=== PATIENT | female | born 2000 | race Caucasian/White ===

== ENCOUNTER 2019-12-27 22:07 | Emergency (ER) | payer BC ==
[~2019-12-27] VITALS: Ht 162.6 cm; Wt 83.2 kg
[2019-12-27] MEDS ORDERED: IV NORMAL SALINE 1,000ML 1,000 ML IV ONE (22:15)
[2019-12-27] MEDS ORDERED: ONDANSETRON PF 4 MG/2 ML VIAL. ONE (22:24)
[2019-12-27] MEDS ORDERED: ONDANSETRON PF 4 MG/2 ML VIAL. IVP ONE (22:30)
--- NOTE | 2019-12-27 22:46 | PHYS DOC ---
Past History Past Medical History: No Pertinent History Past Surgical History: No Surgical History Alcohol Use: Occasionally General Adult EDM: Chief Complaint: ABDOMINAL PAIN HPI: HPI: 19 old female presents with nausea, vomiting, diarrhea, and headache. The patient's primary complaint today is that she has had dizziness and vomiting. She had a concussion on November 10 from a head injury. She is continued to have intermittent headaches and vomiting since that time. She is attempted to rest and decrease her physical sports, but this is not helped with the symptoms. Over the last few days she has had worsening the symptoms with no new trauma. She has a history of headaches, but usually only once a month and they last for less than a day. She did not have a medical work-up after her concussion. She is able to keep down solids and liquids most of the time, but for the last several hours she has been having a keep anything down, her headache is worse, and she is had diarrhea today. No known COVID-19 exposures. No fever or chills. Review of Systems: Review of Systems: Constitutional: Denies fever or chills Eyes: Denies change in visual acuity HENT: Denies nasal congestion or sore throat Respiratory: Denies cough or shortness of breath Cardiovascular: Denies chest pain or edema GI: Right-sided abdominal pain, nausea, vomiting, diarrhea : Denies dysuria Musculoskeletal: Denies back pain or joint pain Integument: Denies rash Neurologic: Headache. Denies focal weakness or sensory changes Endocrine: Denies polyuria or polydipsia Lymphatic: Denies swollen glands Psychiatric: Denies depression or anxiety Heart Score: Risk Factors: Risk Factors: DM, Current or recent (<one month) smoker, HTN, HLP, family history of CAD, obesity. Risk Scores: Score 0 - 3: 2.5% MACE over next 6 weeks - Discharge Home Score 4 - 6: 20.3% MACE over next 6 weeks - Admit for Clinical Observation Score 7 - 10: 72.7% MACE over next 6 weeks - Early Invasive Strategies Current Medications: Current Meds: Current Medications Medications (Trade) Dose Ordered Sig/Patti Start Time Stop Time Status Last Admin Dose Admin Ondansetron HCl (Zofran) 4 mg 1X ONCE 12/27/19 22:30 12/27/19 22:31 DC Sodium Chloride 1,000 ml @ 1,000 mls/hr 1X ONCE 12/27/19 22:15 12/27/19 23:14 Allergies: Allergies: Allergies Coded Allergies Type Severity Reaction Last Updated Verified amoxicillin Allergy Intermediate 12/27/19 Yes diphenhydramine Allergy Intermediate 12/27/19 Yes Physical Exam: PE: Constitutional: Well developed, well nourished, no acute distress, non-toxic a ppearance. [] HENT: Normocephalic, atraumatic, bilateral external ears normal, oropharynx moist, no oral exudates, nose normal. [] Eyes: PERRLA, EOMI, conjunctiva normal, no discharge. [] Neck: Normal range of motion, no tenderness, supple, no stridor. [] Cardiovascular: Heart rate regular rhythm, no murmur [] Lungs & Thorax: Bilateral breath sounds clear to auscultation [] Abdomen: Bowel sounds normal, soft, mild right sided tenderness, no masses, no pulsatile masses. [] Skin: Warm, dry, no erythema, no rash. [] Back: No tenderness, no CVA tenderness. [] Extremities: No tenderness, no cyanosis, no clubbing, ROM intact, no edema. [] Neurologic: Alert and oriented X 3, normal motor function, normal sensory function, no focal deficits noted. [] Psychologic: Affect normal, judgement normal, mood anxious. [] Current Patient Data: Labs: Laboratory Tests Test 12/27/19 22:39 POC Urine HCG, Qualitative hcg negative (Negative) Vital Signs: Vital Signs Date Time Temp Pulse Resp B/P (MAP) Pulse Ox O2 Delivery O2 Flow Rate FiO2 12/27/19 22:08 98.8 79 20 123/74 (90) 100 12/27/19 22:07 Room Air EKG: EKG: [] Radiology/Procedures: Radiology/Procedures: [] Impressions: INDICATION: Reason: recent head injury, dizziness, headaches / Spl. Instructions: / History: COMPARISON: None. TECHNIQUE: Axial CT images obtained through the head without intravenous contrast. One or more of the following individualized dose reduction techniques were utilized for this examination: 1. Automated exposure control; 2. Adjustment of the mA and/or kV according to patient size; 3. Use of iterative reconstruction technique. FINDINGS: No intracranial hemorrhage. No midline shift. Basal cisterns patent. Ventricles and sulci are unremarkable. No acute osseous abnormality. Orbits and paranasal sinuses unremarkable. IMPRESSION: * No acute intracranial hemorrhage. Electronically signed by: Sasha Garrison MD (12/27/2019 11:10 PM) [id number] DICTATED AND SIGNED BY: SASHA GARRISON MD DATE: 12/27/192309 CC: TESSA BAL DO; PCP,NO ~ Course & Med Decision Making: Course & Med Decision Making Pertinent Labs and Imaging studies reviewed. (See chart for details) The patient's CT is negative for acute findings. Her labs are unremarkable. Her urinalysis is negative for infection. She is not . Her urine drug screen is negative. For her headache at given a liter of normal saline, 10 mg of Reglan, 30 mg of Toradol. She is feeling much better at this time. I will discharge her with a prescription for Zofran. This could be concussion symptoms, but could also be a viral illness unrelated to her trauma. She will follow-up with her primary physician as needed. She is stable for discharge at this time. [] Brody Disclaimer: Brody Disclaimer: This electronic medical record was generated, in whole or in part, using a voice recognition dictation system. Departure Departure: Impression: Primary Impression: Nausea & vomiting Qualified Codes: R11.2 - Nausea with vomiting, unspecified Additional Impression: Headache Qualified Codes: G44.1 - Vascular headache, not elsewhere classified Disposition: 01 HOME/RESIDENCE PRIOR TO ADM Condition: STABLE Referrals: PCP,NO (PCP) Patient Instructions: Nausea and Vomiting, [id number] Ondansetron (ONDANSETRON ODT) 4 Mg Tab.rapdis 1 TAB PO PRN Q6-8HRS PRN for VOMITING, #16 TAB Prov: TESSA BAL DO 12/27/19 Justification of Admission: Justification of Admission: Justification of Admission Dx: N/A TESSA BAL DO Dec 27, 2019 22:45
[2019-12-27 22:49] LABS: BARBITURATES NEG (NEG); BENZODIAZEPINES NEG (NEG); CANNABINOIDS NEG (NEG); COCAINE NEG (NEG); METHADONE NEG (NEG); OPIATES NEG (NEG); PHENCYCLIDINE NEG (NEG)
[2019-12-27 22:50] LABS: AMPHETAMINE/METHAMPHETAMINE NEG (NEG)
[2019-12-27 22:55] LABS: BACTERIA,URINE 0 /HPF (0-FEW); BILIRUBIN,URINE NEG (NEG); CLARITY,URINE CLEAR; COLOR,URINE STRAW; GLUCOSE,URINE NEG (NEG); NITRITE,URINE NEG (NEG); RBC,URINE 0 /HPF (0-2); UROBILINOGEN,URINE 0.2 mg/dL (0.2 mg/dL); WBC,URINE OCC /HPF (0-4)
[2019-12-27 22:56] LABS: SQUAMOUS EPITHELIAL CELL,UR FEW /LPF
[2019-12-27 23:08] LABS: BASO # 0.1 x10^3/uL (0.0-0.2); BASO % 1 % (0-3); EOS # 0.5 x10^3/uL (0.0-0.7); EOS % 6 % (0-3); HEMATOCRIT 40.7 % (36.0-47.0); HEMOGLOBIN 13.5 g/dL (12.0-15.5); LYMPH # 3.4 x10^3/uL (1.0-4.8); LYMPH % 37 % (24-48); MEAN CORPUSCULAR HEMOGLOBIN 29 pg (25-35); MEAN CORPUSCULAR HGB CONC 33 g/dL (31-37); MEAN CORPUSCULAR VOLUME 89 fL (79-100); MONO # 0.5 x10^3/uL (0.0-1.1); MONO % 5 % (0-9); NEUT # 4.7 x10^3uL (1.8-7.7); NEUT % 51 % (31-73); PLATELET COUNT 383 x10^3/uL (140-400); RED CELL DISTRIBUTION WIDTH 13.9 % (11.5-14.5); WHITE BLOOD COUNT 9.2 x10^3/uL (4.0-11.0)
[2019-12-27 23:11] LABS: CALCIUM 9.3 mg/dL (8.5-10.1); GFR 70.7; POTASSIUM 3.8 mmol/L (3.5-5.1)
--- NOTE | 2019-12-27 23:13 | RAD ---
INDICATION: Reason: recent head injury, dizziness, headaches / Spl. Instructions: / History: COMPARISON: None. TECHNIQUE: Axial CT images obtained through the head without intravenous contrast. One or more of the following individualized dose reduction techniques were utilized for this examination: 1. Automated exposure control; 2. Adjustment of the mA and/or kV according to patient size; 3. Use of iterative reconstruction technique. FINDINGS: No intracranial hemorrhage. No midline shift. Basal cisterns patent. Ventricles and sulci are unremarkable. No acute osseous abnormality. Orbits and paranasal sinuses unremarkable. IMPRESSION: * No acute intracranial hemorrhage. Electronically signed by: Benson Garrison MD (12/27/2019 11:10 PM) [id number]
[2019-12-27 23:17] LABS: ALBUMIN 4.1 g/dL (3.4-5.0); ALBUMIN/GLOBULIN RATIO 1.2 (1.0-1.7); TOTAL BILIRUBIN 0.3 mg/dL (0.2-1.0); TOTAL PROTEIN 7.5 g/dL (6.4-8.2)
[2019-12-27] MEDS ORDERED: ONDA4TAB12 PO (23:38)
[2019-12-27] MEDS ORDERED: KETOROLAC 30 MG/ML VIAL. IVP ONE (23:45)
[2019-12-27] MEDS ORDERED: METOCLOPRAMIDE HCL 10 MG/2 ML VIAL. IVP ONE (23:45)
[2019-12-27 23:46] VITALS: BP 98/56
== END 2019-12-28 00:14 | disposition home or self-care (01) ==
LOC: ER 22:07
DX: R11.2 Nausea with vomiting, unspecified (principal); G44.1 Vascular headache, not elsewhere classified; R19.7 Diarrhea, unspecified; Z88.1 Allergy status to other antibiotic agents; Z88.8 Allergy status to other drugs, medicaments and biological substances
CPT/HCPCS: 36415; 70450; 80053; 80307; 81001; 81025; 83690; 85025; 96361; 96374; 96375; 99284; J1885; J2405; J2765; J7030

== ENCOUNTER → 2020-07-05 | Outpatient (CLI) | payer BC, OTHER ==
[~2020-07-05] MED LIST: ONDA4TAB12 PO
--- NOTE | 2020-07-05 11:31 | RAD ---
EXAM: 3 views of the right wrist DATE: 07/05/2020 11:12 AM INDICATION: Reason: FELL ON WRIST DURING SOFTBALL / Spl. Instructions: / History: COMPARISON: No Prior FINDINGS: No acute fracture or dislocation. Joint spaces are preserved without significant degenerative/prolife rative change. No significant soft tissue swelling. IMPRESSION: No acute fracture or dislocation. If there is persistent clinical concern for fracture, follow-up rad iographs in 10-14 days is recommended. Electronically signed by: Vlad Gonzalez MD (07/05/2020 11:28 AM) [id number]
== END ==
LOC: PMG 10:56
PROVIDERS: ATTEND Nurse Practitioner Family
DX: M25.531 Pain in right wrist (principal)
CPT/HCPCS: 73110

== ENCOUNTER → 2021-01-24 | Outpatient (CLI) | payer BC | LOC: LAB 16:02 | PROVIDERS: ATTEND Nurse Practitioner Family | DX: R63.4 Abnormal weight loss (principal); Z68.21 Body mass index [BMI] 21.0-21.9, adult | CPT/HCPCS: 84443 ==

== ENCOUNTER → 2021-02-12 | Outpatient (CLI) | payer BC ==
--- NOTE | 2021-02-12 17:05 | RAD ---
EXAM: Right foot, 3 views; left ankle, 4 views. HISTORY: Pain. COMPARISON: None. FINDINGS: 3 views of the right foot and 4 views of the right ankle are obtained. There is no acute fr acture, dislocation or subluxation. The ankle mortise is intact. There is no osteochondral lesion. IMPRESSION: No acute osseous finding. Electronically signed by: Claudia Carrero MD (02/12/2021 5:02 PM) [id number]
== END ==
LOC: RAD 16:48
PROVIDERS: ATTEND Nurse Practitioner Family
DX: M25.571 Pain in right ankle and joints of right foot (principal); M79.671 Pain in right foot
CPT/HCPCS: 73610; 73630

== ENCOUNTER → 2021-02-28 | Outpatient (CLI) | payer BC ==
--- NOTE | 2021-02-28 12:56 | RAD ---
XR FOOT_RIGHT 3 VIEWS DATE: 02/28/2021 9:34 AM INDICATION: RIGHT FOOT PAIN AFTER INJURY 2WKS AGO, ANKLE SWELLING/GRT TOE COMPARISON: None. FINDINGS: Bones: There is no evidence of acute fracture or dislocation. Bipartite medial hallux sesamoid. Joints: The joint spaces are normal. Miscellaneous: None. IMPRESSION: No evidence of acute fracture. Electronically signed by: Wolfgang Spann MD (02/28/2021 12:54 PM) [id number]
== END ==
LOC: RAD 09:17
PROVIDERS: ATTEND Nurse Practitioner Family
DX: M79.671 Pain in right foot (principal)
CPT/HCPCS: 73630